=== PATIENT | male | born 1945 | race Caucasian/White ===

== ENCOUNTER 2019-08-03 22:54 | Emergency (ER) | payer OTHER ==
[~2019-08-03] VITALS: Ht 182.9 cm; Wt 90.7 kg
[2019-08-03 23:33] LABS: Urine WBC None Seen /hpf (0 - 3)
[2019-08-03 23:45] LABS: Urine Bacteria NONE SEEN /hpf (None Seen); Urine Blood Negative /uL (Negative); Urine Specific Gravity 1.011 (1.001-1.035)
[2019-08-03 23:48] LABS: Basophils # (auto) 0.1 uL; Basophils % (auto) 0.7 % (0.0-2.0); Eosinophils # (auto) 0.3 uL; Eosinophils % (auto) 3.4 % (0.0-7.0); Hematocrit 40.3 % (41.0-53.0); Hemoglobin 13.5 g/dL (13.5-17.5); Lymphocytes # (auto) 1.5 uL; Lymphocytes % (auto) 19.9 % (10.0-50.0); Mean Corpuscular Hemoglobin 31.3 pg (28.0-32.0); Mean Corpuscular Hgb Conc. 33.5 g/dL (32.0-36.0); Mean Corpuscular Volume 93.2 fL (80.0-100.0); Monocytes # (auto) 0.6 uL; Platelet Count (auto) 167 10^3/uL (140-450); Red Blood Cells 4.33 10^6/uL (4.5-5.90); Red Cell Distribution Width 13.8 % (11.8-14.3); White Blood Cell 7.4 10^3/uL (4.4-10.8)
[2019-08-04 00:02] LABS: INR 1.01 (0.9-1.15); Partial Thromboplastin Time 26.2 sec (23.64-32.05)
[2019-08-04 00:09] LABS: Alanine Aminotransferase 50 U/L (16-61); Albumin 3.8 g/dL (3.4-5.0); Anion Gap 11 (5-15); Aspartate Aminotransferase 25 U/L (15-37); BUN/Creatinine Ratio 21.4; Blood Urea Nitrogen 30 mg/dL (7-18); Calcium 8.6 mg/dL (8.5-10.1); Carbon Dioxide 22 mmol/L (21-32); Chloride 103 mmol/L (98-107); GFR African American 64 mL/min; GFR Non-African American 53 mL/min; Glucose 164 mg/dL (74-106); Magnesium 1.8 mg/dL (1.6-2.6); Potassium 4.2 mmol/L (3.5-5.1); Sodium 136 mmol/L (136-145)
[2019-08-04 00:14] LABS: Alkaline Phosphatase 53 U/L (45-117); Bilirubin, Total 0.3 mg/dL (0.2-1.0); Total Protein 7.1 g/dL (6.4-8.2)
[2019-08-04] MEDS ORDERED: MECLIZINE HCL 25 MG TAB PO ONE ×2 (01:00→03:15)
[2019-08-04 02:57] VITALS: BP 147/53
== END 2019-08-04 03:13 | disposition home or self-care (01) ==
LOC: EDBD 22:54 → ER 22:56
DX: R42 Dizziness and giddiness (principal); E86.0 Dehydration; E11.9 Type 2 diabetes mellitus without complications; I10 Essential (primary) hypertension; I25.2 Old myocardial infarction; Z98.61 Coronary angioplasty status
CPT/HCPCS: 36415; 70450; 71045; 80053; 81001; 83735; 83880; 84484; 85025; 85610; 85730; 93005; 99284; J8597

== ENCOUNTER 2021-10-01 23:22 | Inpatient (IN) | payer OTHER ==
[~2021-10-01] VITALS: Ht 182.9 cm; Wt 96.3 kg
[2021-10-02 01:29] LABS: Basophils # (auto) 0 10 ^3/uL (0-0.2); Basophils % (auto) 0.8 % (0.0-2.0); Eosinophils # (auto) 0.2 10 ^3/uL (0-0.8); Eosinophils % (auto) 3.8 % (0.0-7.0); Hematocrit 34.5 % (41.0-53.0); Hemoglobin 11.5 g/dL (13.5-17.5); Lymphocytes # (auto) 1.2 10 ^3/uL (0.4-5.4); Lymphocytes % (auto) 20.6 % (10.0-50.0); Mean Corpuscular Hgb Conc. 33.2 g/dL (32.0-36.0); Mean Corpuscular Volume 93.1 fL (80.0-100.0); Monocytes # (auto) 0.5 10 ^3/uL (0-1.3); Monocytes % (auto) 9.3 % (0.0-12.0); Neutrophils # (auto) 3.7 10 ^3/uL (1.6-8.6); Neutrophils % (auto) 65.5 % (37.0-80.0); Red Cell Distribution Width 13.3 % (11.8-14.3); White Blood Cell 5.6 10^3/uL (4.4-10.8)
[2021-10-02 01:44] LABS: Albumin 3.3 g/dL (3.4-5.0); Potassium 4.2 mmol/L (3.5-5.1)
[2021-10-02 01:51] LABS: Bilirubin, Total 0.2 mg/dL (0.2-1.0); Total Protein 6.3 g/dL (6.4-8.2)
[2021-10-02] MEDS ORDERED: ENOXAPARIN SOD 60 MG/0.6 ML SYRINGE SC ONE (10:45)
[2021-10-02 11:11] LABS: INR 1.04 (0.9-1.15); Partial Thromboplastin Time 25.1 sec (23.6-33.0)
[2021-10-02] MEDS ORDERED: DEXTROSE (50%) 50ML SYRG IV PRN (15:30)
[2021-10-02] MEDS ORDERED: DOCUSATE SOD 100 MG CAP PO PRN (15:30)
[2021-10-02] MEDS ORDERED: ACETAMINOPHEN 325 MG TAB PO PRN (15:30)
[2021-10-02] MEDS ORDERED: HYDROcodone-ACET 5/325MG TAB PO PRN (15:30)
[2021-10-02] MEDS ORDERED: MORPHINE SULFATE INJECTION 2 MG/ML SYRG IV PRN (15:30)
[2021-10-02] MEDS ORDERED: NITROGLYCERIN 0.4 MG SL TAB SL PRN (15:30)
[2021-10-02] MEDS ORDERED: HEPARIN SODIUM (PORCINE) 5000 UNITS/ML 1ML VIAL IV ONE (15:45)
[2021-10-02 16:38] LABS: Basophils # (auto) 0.1 10 ^3/uL (0-0.2); Basophils % (auto) 1.1 % (0.0-2.0); Eosinophils # (auto) 0.3 10 ^3/uL (0-0.8); Eosinophils % (auto) 4.6 % (0.0-7.0); Hematocrit 36.1 % (41.0-53.0); Hemoglobin 12.3 g/dL (13.5-17.5); Lymphocytes # (auto) 1.3 10 ^3/uL (0.4-5.4); Lymphocytes % (auto) 20.2 % (10.0-50.0); Mean Corpuscular Hemoglobin 31.3 pg (28.0-32.0); Monocytes # (auto) 0.5 10 ^3/uL (0-1.3); Neutrophils # (auto) 4.1 10 ^3/uL (1.6-8.6); Neutrophils % (auto) 66.1 % (37.0-80.0); Red Blood Cells 3.92 10^6/uL (4.5-5.90); Red Cell Distribution Width 13.6 % (11.8-14.3); White Blood Cell 6.2 10^3/uL (4.4-10.8)
[2021-10-02 16:41] LABS: BUN/Creatinine Ratio 20.9; Calcium 8.8 mg/dL (8.5-10.1); Potassium 4.2 mmol/L (3.5-5.1)
[2021-10-02 16:56] LABS: INR 1.05 (0.9-1.15); Partial Thromboplastin Time 28.2 sec (23.6-33.0)
[2021-10-02] MEDS ORDERED: ATEN-60 PO ×2 (18:22)
[2021-10-02] MEDS ORDERED: HYDR-4296 PO (18:22)
[2021-10-02] MEDS ORDERED: PAR20T PO (18:22)
[2021-10-02] MEDS ORDERED: MELO1TAB73 PO (18:22)
[2021-10-02] MEDS ORDERED: AML5T PO (18:22)
[2021-10-02] MEDS ORDERED: ATOR-47 PO (18:22)
[2021-10-02] MEDS ORDERED: GLIP5TAB12 PO ×2 (18:22)
[2021-10-02] MEDS ORDERED: LOSA25TA38 PO (18:22)
[2021-10-02] MEDS ORDERED: METF-370 PO ×2 (18:22)
[2021-10-02] MEDS ORDERED: OMEP20TA PO (18:22)
[2021-10-02] MEDS ORDERED: HYDR25TA5 PO (18:22)
[2021-10-02] MEDS: ACCU-CHEK COMFORT CURVE STRIP VI SCH ×2 (18:39→21:59)
[2021-10-02] MEDS: metFORMIN HYDROCHLORIDE 500 MG TAB PO SCH (18:39)
[2021-10-02] MEDS: InsuLIN REG 1unit/0.01ml Soln (100units/ml) SC SCH ×2 (18:40→22:08)
[2021-10-02 20:00] VITALS: BP 150/57
[2021-10-02] MEDS: HEPARIN DRIP/D5W 100UNITS/ML 250 ML IV SCH (21:58)
[2021-10-02] MEDS: ATENOLOL 25 MG TAB PO SCH (21:59)
[2021-10-02 22:00] VITALS: BP 150/57
[2021-10-02] MEDS ORDERED: hydrALAZINE HCL 25 MG TAB PO SCH (22:00)
[2021-10-03 00:26] LABS: INR 1.05 (0.9-1.15); Partial Thromboplastin Time 29.7 sec (23.6-33.0)
[2021-10-03 05:00] VITALS: BP 129/49
[2021-10-03 05:10] LABS: INR 1.06 (0.9-1.15); Partial Thromboplastin Time 32.5 sec (23.6-33.0)
[2021-10-03] MEDS ORDERED: HEPARIN SODIUM (PORCINE) 5000 UNITS/ML 1ML VIAL IV ONE (05:45)
[2021-10-03] MEDS: InsuLIN REG 1unit/0.01ml Soln (100units/ml) SC SCH ×4 (06:22→22:07)
[2021-10-03] MEDS: ACCU-CHEK COMFORT CURVE STRIP VI SCH ×4 (06:34→22:02)
[2021-10-03 08:00] VITALS: BP 192/82
[2021-10-03] MEDS: metFORMIN HYDROCHLORIDE 500 MG TAB PO SCH ×2 (08:00→18:00)
[2021-10-03 09:00] VITALS: BP 192/80
[2021-10-03] MEDS: PARoxetine 20 MG TAB PO SCH (10:00)
[2021-10-03] MEDS: PANTOPRAZOLE 40 MG/10 ML VIAL INJ IV SCH (10:00)
[2021-10-03] MEDS: ATENOLOL 25 MG TAB PO SCH ×2 (10:00→22:02)
[2021-10-03] MEDS ORDERED: PARoxetine 20 MG TAB PO SCH (10:00)
[2021-10-03] MEDS: LOSARTAN POTASSIUM 25 MG TAB PO SCH (10:00)
[2021-10-03] MEDS ORDERED: ASPirin 81 mg TAB PO ONE (12:00)
[2021-10-03] MEDS ORDERED: LISINOPRIL 20 MG TAB PO ONE (12:00)
[2021-10-03] MEDS ORDERED: CLOPIDOGREL BISULFATE 75 MG TAB PO ONE (12:00)
[2021-10-03] MEDS ORDERED: LISINOPRIL 20 MG TAB PO SCH (12:02)
[2021-10-03] MEDS: ONDANSETRON HCL 4 MG/2 ML VIAL IV PRN ×2 (13:11→23:11)
[2021-10-03 13:27] LABS: Cholesterol 146 mg/dL (< 200); HDL Cholesterol 39 mg/dL (40-59); LDL Cholesterol 73 mg/dL (< 100); Triglycerides 254 mg/dL (< 150)
[2021-10-03 16:15] LABS: INR 1.06 (0.9-1.15); Partial Thromboplastin Time 41.9 sec (23.6-33.0)
[2021-10-03 16:39] LABS: Cholesterol 160 mg/dL (< 200); Triglycerides 235 mg/dL (< 150)
[2021-10-03 16:41] LABS: HDL Cholesterol 45 mg/dL (40-59); LDL Cholesterol 83 mg/dL (< 100)
[2021-10-03] MEDS: HEPARIN DRIP/D5W 100UNITS/ML 250 ML IV SCH (17:00)
[2021-10-03 17:30] VITALS: BP 163/60
[2021-10-03 20:00] VITALS: BP 151/43
[2021-10-03 22:00] VITALS: BP 151/43
[2021-10-03] MEDS: ATORVASTATIN 20 MG TAB PO SCH (22:01)
[2021-10-03 23:12] LABS: INR 1.07 (0.9-1.15); Partial Thromboplastin Time 48.5 sec (23.6-33.0)
[2021-10-04] VITALS (9 sets, daily range): BP systolic 122–171; BP diastolic 56–98
[2021-10-04] MEDS: InsuLIN REG 1unit/0.01ml Soln (100units/ml) SC SCH ×4 (05:45→21:31)
[2021-10-04] MEDS: ONDANSETRON HCL 4 MG/2 ML VIAL IV PRN ×2 (05:45→17:15)
[2021-10-04] MEDS: ACCU-CHEK COMFORT CURVE STRIP VI SCH ×4 (05:45→21:35)
[2021-10-04 06:52] LABS: INR 1.1 (0.9-1.15); Partial Thromboplastin Time 69.4 sec (23.6-33.0)
[2021-10-04] MEDS: metFORMIN HYDROCHLORIDE 500 MG TAB PO SCH ×2 (06:55→14:30)
[2021-10-04] MEDS ORDERED: LIDOCAINE 2%HCL (LOCAL ANESTH.) INJ 20ML MDV ONE (09:16)
[2021-10-04] MEDS ORDERED: IOHEXOL 350 MG/ML 100ML IJ ONE (09:16)
[2021-10-04] MEDS ORDERED: ANGIOMAX 250 MG VIAL IV ONE ×2 (09:19→10:45)
[2021-10-04] MEDS ORDERED: fentaNYL CITRATE 100 MCG/2 ML VL ONE ×2 (09:19→10:54)
[2021-10-04] MEDS ORDERED: MIDAZOLAM HCL 2MG/2ML 2ml VIAL (1mg/ml) ONE ×2 (09:20→10:54)
[2021-10-04] MEDS ORDERED: VERAPAMIL 2.5MG/ML INJ 2ML VIAL IV ONE (09:21)
[2021-10-04] MEDS ORDERED: SODIUM CHL 0.9% 50 ML ONE ×2 (09:21→10:45)
[2021-10-04] MEDS ORDERED: HEPARIN SODIUM (PORCINE) 5000 UNITS/ML 1ML VIAL ONE (09:21)
[2021-10-04] MEDS ORDERED: METOPROLOL TARTRATE 1MG/1ML-5ML VIAL IV ONE ×2 (09:56→12:11)
[2021-10-04] MEDS: ASPirin 81 mg TAB PO SCH ×2 (10:00→16:38)
[2021-10-04] MEDS: CLOPIDOGREL BISULFATE 75 MG TAB PO SCH ×2 (10:00→16:38)
[2021-10-04] MEDS: PARoxetine 20 MG TAB PO SCH (10:00)
[2021-10-04] MEDS ORDERED: IODIXANOL 320MG/ML 100ML BTL IV ONE ×3 (10:15→12:03)
[2021-10-04] MEDS: LOSARTAN POTASSIUM 25 MG TAB PO SCH (13:30)
[2021-10-04] MEDS: ATENOLOL 25 MG TAB PO SCH ×2 (13:30→21:34)
[2021-10-04] MEDS: PANTOPRAZOLE 40 MG/10 ML VIAL INJ IV SCH (14:15)
[2021-10-04] MEDS: ATORVASTATIN 20 MG TAB PO SCH (21:32)
[2021-10-05] MEDS: ONDANSETRON HCL 4 MG/2 ML VIAL IV PRN ×2 (00:27→05:25)
[2021-10-05 05:00] VITALS: BP 105/49
[2021-10-05] MEDS: InsuLIN REG 1unit/0.01ml Soln (100units/ml) SC SCH ×2 (06:14→12:15)
[2021-10-05] MEDS: ACCU-CHEK COMFORT CURVE STRIP VI SCH ×2 (06:18→11:30)
[2021-10-05 06:40] LABS: Calcium 8.2 mg/dL (8.5-10.1)
[2021-10-05 08:42] VITALS: BP 136/61
[2021-10-05] MEDS: PANTOPRAZOLE 40 MG/10 ML VIAL INJ IV SCH (09:58)
[2021-10-05] MEDS: CLOPIDOGREL BISULFATE 75 MG TAB PO SCH (09:58)
[2021-10-05] MEDS: PARoxetine 20 MG TAB PO SCH (09:58)
[2021-10-05] MEDS: ASPirin 81 mg TAB PO SCH (09:58)
[2021-10-05] MEDS: LOSARTAN POTASSIUM 25 MG TAB PO SCH (09:59)
[2021-10-05] MEDS: ATENOLOL 25 MG TAB PO SCH (09:59)
[2021-10-05] MEDS ORDERED: CLOP75TA28 PO ×2 (11:05→11:35)
[2021-10-05 12:47] VITALS: BP 124/63
== END 2021-10-05 14:55 | disposition home or self-care (01) | DRG 246 ==
LOC: EDBD 23:22 → ER 23:22 → TELE 10-02 15:17 → TELE-WESTW 10-02 17:54
PROVIDERS: ADMIT Internal Medicine; ATTEND Family Medicine
PROC: 027036Z Dilation of Coronary Artery, One Artery with Three Drug-eluting Intraluminal Devices, Percutaneous Approach (ICD-10-PCS; principal; 2021-10-04)
PROC: 02C03Z7 Extirpation of Matter from Coronary Artery, One Artery, Orbital Atherectomy Technique, Percutaneous Approach (ICD-10-PCS; 2021-10-04)
PROC: B240ZZ3 Ultrasonography of Single Coronary Artery, Intravascular (ICD-10-PCS; 2021-10-04)
PROC: 4A023N7 Measurement of Cardiac Sampling and Pressure, Left Heart, Percutaneous Approach (ICD-10-PCS; 2021-10-04)
PROC: B211YZZ Fluoroscopy of Multiple Coronary Arteries using Other Contrast (ICD-10-PCS; 2021-10-04)
PROC: B215YZZ Fluoroscopy of Left Heart using Other Contrast (ICD-10-PCS; 2021-10-04)
PROC: 4A033BC Measurement of Arterial Pressure, Coronary, Percutaneous Approach (ICD-10-PCS; 2021-10-04)
DX: T82.855A Stenosis of coronary artery stent, initial encounter (principal); I21.4 Non-ST elevation (NSTEMI) myocardial infarction; E87.1 Hypo-osmolality and hyponatremia; I25.110 Atherosclerotic heart disease of native coronary artery with unstable angina pectoris; I16.0 Hypertensive urgency; D64.9 Anemia, unspecified; E11.65 Type 2 diabetes mellitus with hyperglycemia; E88.09 Other disorders of plasma-protein metabolism, not elsewhere classified; I10 Essential (primary) hypertension; E78.5 Hyperlipidemia, unspecified; E78.00 Pure hypercholesterolemia, unspecified; I25.2 Old myocardial infarction; Z20.822 Contact with and (suspected) exposure to COVID-19; Y83.1 Surgical operation with implant of artificial internal device as the cause of abnormal reaction of the patient, or of later complication, without mention of misadventure at the time of the procedure; Y92.89 Other specified places as the place of occurrence of the external cause; Z79.84 Long term (current) use of oral hypoglycemic drugs; Z79.899 Other long term (current) drug therapy; Z82.49 Family history of ischemic heart disease and other diseases of the circulatory system; Z91.19 Patient's noncompliance with other medical treatment and regimen; Z88.8 Allergy status to other drugs, medicaments and biological substances
CPT/HCPCS: 36415; 71045; 80048; 80053; 80061; 82962; 83880; 84484; 85025; 85610; 85730; 86850; 86900; 86901; 87426; 92929; 92933; 92978; 93005; 93306; 93458; 93571; 96372; 99152; 99153; C1724; C1769; C1874; C9113; G0378; J1815; J2250; J2405; Q9967